=== PATIENT | male | born 1985 | race African-American/Black ===

== ENCOUNTER 2018-05-19 10:18 | Emergency (ER) | payer SELFPAY ==
[~2018-05-19] VITALS: Ht 188 cm; Wt 143.3 kg
[2018-05-19] MEDS ORDERED: KETOROLAC 30 MG/1 ML ONE (11:42)
[2018-05-19] MEDS ORDERED: LISINOPRIL 20 MG TABLET ONE (11:42)
[2018-05-19] MEDS ORDERED: MIRTAZAPINE 15 MG TABLET PO ONE (12:00)
[2018-05-19] MEDS ORDERED: KETOROLAC 30 MG/1 ML IM ONE (12:00)
[2018-05-19] MEDS ORDERED: BUSPIRONE 10 MG TABLET PO ONE (12:00)
[2018-05-19] MEDS ORDERED: LISINOPRIL 20 MG TABLET PO ONE (12:00)
[2018-05-19 12:35] VITALS: BP 142/104
== END 2018-05-19 12:37 | disposition home or self-care (01) ==
LOC: ED 12:31
DX: F41.1 Generalized anxiety disorder (principal); F32.9 Major depressive disorder, single episode, unspecified; I10 Essential (primary) hypertension; Z76.0 Encounter for issue of repeat prescription; Z88.0 Allergy status to penicillin
CPT/HCPCS: 96372; 99284; J1885

== ENCOUNTER 2018-06-09 11:30 | Emergency (ER) | payer MEDICAID, OTHER ==
[~2018-06-09] VITALS: Ht 188 cm; Wt 143.0 kg
[2018-06-09 11:36] VITALS: BP 160/97
[2018-06-09] MEDS ORDERED: FLUO40CA9 PO (11:50)
[2018-06-09] MEDS ORDERED: HYDR50CA2 PO (11:51)
[2018-06-09] MEDS ORDERED: KETOROLAC 30 MG/1 ML ONE (12:44)
[2018-06-09] MEDS ORDERED: KETOROLAC 30 MG/1 ML IM ONE (13:00)
== END 2018-06-09 13:09 | disposition home or self-care (01) ==
LOC: ED 12:53
DX: G89.29 Other chronic pain (principal); M25.562 Pain in left knee; I10 Essential (primary) hypertension
CPT/HCPCS: 73564; 96372; 99283; J1885

== ENCOUNTER 2018-08-02 22:21 | Emergency (ER) | payer SELFPAY ==
[~2018-08-02] VITALS: Ht 182.9 cm; Wt 145.0 kg
[~2018-08-02 22:21] MED LIST: FLUO40CA9 PO; HYDR50CA2 PO
[2018-08-02 22:28] VITALS: BP 146/95
--- NOTE | 2018-08-02 22:31 | NUR ---
PT BIB EMS FOR LEFT KNEE INJURY. PT REPORTS HE "TWEKAED HIS KNEE" WHEN WLAKING AND THE PAIN HAS GOTTEN MUCH WORSE. DENIES TRAUMA. PT REPORTS HE DOES NEED HIS KNEE REPLACED EVEBNTUALLY.
[2018-08-02] MEDS ORDERED: IBUPROFEN 200 MG TABLET ONE (22:42)
[2018-08-02] MEDS ORDERED: IBUPROFEN 200 MG TABLET PO ONE (23:00)
[2018-08-02] MEDS ORDERED: HYDROcodone/APAP 10/325 MG TABLET ONE (23:08)
--- NOTE | 2018-08-02 23:11 | NUR ---
PT MEDICATED PER [facility].
[2018-08-02] MEDS ORDERED: HYDROcodone/APAP 10/325 MG TABLET PO ONE (23:30)
--- NOTE | 2018-08-02 23:37 | NUR ---
SOLOMON WRAP APPLIED TO LEFT KNEE.
== END 2018-08-03 00:11 | disposition home or self-care (01) ==
LOC: ED 22:45
DX: G89.29 Other chronic pain (principal); M25.562 Pain in left knee
CPT/HCPCS: 99283

== ENCOUNTER 2018-08-03 00:16 | Emergency (ER) | payer SELFPAY ==
[~2018-08-03] VITALS: Ht 185.4 cm; Wt 135.0 kg
--- NOTE | 2018-08-03 00:36 | NUR ---
PT TO ROOM 3 AT THIS TIME D/T C/O NEEDS MEDS FOR PSYCH, PT IN NAD AT THIS TIME
[2018-08-03] MEDS ORDERED: RISPERIDONE 2 MG TABLET PO ONE (01:00)
--- NOTE | 2018-08-03 01:00 | NUR ---
REPORT GIVEN FROM NABEEL YE
[2018-08-03] MEDS ORDERED: RISPERIDONE 2 MG TABLET ONE ×2 (01:11→01:14)
--- NOTE | 2018-08-03 01:51 | NUR ---
PT IS NOT SI, HI PT GIVEN A TAXI VOUCHER HOME PT IS REFUSING TO LEAVE. DR MIRANDA AWARE. PT DICHARGED WITH SECURITY
--- NOTE | 2018-08-03 01:51 | NUR ---
PT IS TO FOLLOW UP WITH [facility] TOMORROW. PT REPORTS HE IS A PATIENT THERE AND GETS HIS MEDICATION FROM THERE. PT DISCHARGED.
[2018-08-03 01:55] VITALS: BP 143/82
== END 2018-08-03 01:59 | disposition home or self-care (01) ==
LOC: ED 00:55
DX: F41.1 Generalized anxiety disorder (principal); Z72.9 Problem related to lifestyle, unspecified; Z76.0 Encounter for issue of repeat prescription; I10 Essential (primary) hypertension; Z88.0 Allergy status to penicillin
CPT/HCPCS: 99282